=== PATIENT | female | born 1970 | race African-American/Black ===

== ENCOUNTER 2018-05-19 22:43 | Emergency (ER) | payer MEDICAID, OTHER ==
[~2018-05-19] VITALS: Ht 165.1 cm; Wt 86.0 kg
[2018-05-19] MEDS ORDERED: NITROGLYCERIN 0.4MG TABLET SL SL PRN (23:30)
[2018-05-19] MEDS ORDERED: ASPIRIN 81MG TABLET PO ONE (23:30)
[2018-05-19] MEDS ORDERED: MAGNESIUM/ALUMINUM HYDROXIDE/SIMETHICONE 30ML UDC PO ONE (23:30)
[2018-05-19] MEDS ORDERED: VISCOUS LIDOCAINE 2% 15 ML UDC PO ONE (23:30)
[2018-05-20 00:20] LABS: BASOPHILS % 0.2 % (0.0-2.0); EOSINOPHILS % 1.1 % (0.0-5.0); HEMATOCRIT. 36.6 % (36.0-48.0); HEMOGLOBIN. 12.4 g/dL (12.0-16.0); LYMPHOCYTES % 18.7 % (20.0-50.0); MEAN CORPUSCULAR VOLUME 91.6 fL (81.0-99.0); MEAN PLATELET VOLUME 8.4 fl (7.4-10.4); MONOCYTES % 5.3 % (2.0-8.0); NEUTROPHILS % 74.7 % (40.0-76.0); PLATELET 385 x1000/uL (130-400); RED CELL DISTRIBUTION WIDTH 18.1 % (11.6-14.6)
[2018-05-20 00:21] LABS: CHLORIDE 108 mEq/L (98-107)
[2018-05-20 04:30] VITALS: BP 141/95
== END 2018-05-20 04:56 | disposition home or self-care (01) ==
LOC: ER 22:54
DX: R07.89 Other chest pain (principal); R20.8 Other disturbances of skin sensation; F41.9 Anxiety disorder, unspecified; I50.9 Heart failure, unspecified; M32.9 Systemic lupus erythematosus, unspecified; Z85.830 Personal history of malignant neoplasm of bone; Z98.890 Other specified postprocedural states
CPT/HCPCS: 36415; 71045; 80053; 83880; 84484; 85025; 93005; 99284; Z7610

== ENCOUNTER 2019-08-07 06:04 | Emergency (ER) | payer MEDICAID, OTHER ==
[~2019-08-07] VITALS: Ht 170.2 cm; Wt 87.0 kg
[2019-08-07] MEDS ORDERED: OXYCODONE HCL/ACETAMINOPHEN 5/325MG TABLET PO ONE (06:45)
[2019-08-07 07:29] LABS: *AMPHETAMINES SCREEN URINE NEGATIVE (NEGATIVE); *BARBITURATES SCREEN URINE NEGATIVE (NEGATIVE)
[2019-08-07 07:41] LABS: *BENZODIAZEPINES SCREEN URINE NEGATIVE (NEGATIVE)
[2019-08-07 07:43] LABS: *COCAINE SCREEN URINE NEGATIVE (NEGATIVE); CANNABINOID URINE SCREEN NEGATIVE (NEGATIVE); METHADONE URINE SCREEN NEGATIVE (NEGATIVE); OPIATES URINE SCREEN NEGATIVE (NEGATIVE); PHENCYCLIDINE URINE SCREEN NEGATIVE (NEGATIVE)
[2019-08-07 07:50] LABS: BASOPHILS % 1.5 % (0.0-2.0); EOSINOPHILS % 1.2 % (0.0-5.0); HEMATOCRIT. 35.9 % (36.0-48.0); HEMOGLOBIN. 12.2 g/dL (12.0-16.0); LYMPHOCYTES % 24.5 % (20.0-50.0); MEAN CORPUSCULAR HEMOGLOBIN 30.9 pg (28.0-32.0); MEAN CORPUSCULAR VOLUME 91.2 fL (81.0-99.0); MEAN PLATELET VOLUME 8.7 fl (7.4-10.4); MONOCYTES % 5.2 % (2.0-8.0); NEUTROPHILS % 67.6 % (40.0-76.0); PLATELET 427 x1000/uL (130-400); RED BLOOD CELL COUNT 3.94 mill/uL (4.2-5.4); RED CELL DISTRIBUTION WIDTH 19.2 % (11.6-14.6)
[2019-08-07 07:59] LABS: CHLORIDE 106 mEq/L (98-107)
[2019-08-07 08:11] LABS: B-HCG QUANTITATIVE < 1 mIU/mL (<3)
[2019-08-07 10:14] VITALS: BP 129/85
== END 2019-08-07 10:29 | disposition home or self-care (01) ==
LOC: ER 06:04
DX: M79.18 Myalgia, other site (principal); D25.9 Leiomyoma of uterus, unspecified; N93.9 Abnormal uterine and vaginal bleeding, unspecified; M32.9 Systemic lupus erythematosus, unspecified; G40.909 Epilepsy, unspecified, not intractable, without status epilepticus; I10 Essential (primary) hypertension; F99 Mental disorder, not otherwise specified; Z85.89 Personal history of malignant neoplasm of other organs and systems; W01.0XXA Fall on same level from slipping, tripping and stumbling without subsequent striking against object, initial encounter; Y93.89 Activity, other specified; Y92.488 Other paved roadways as the place of occurrence of the external cause
CPT/HCPCS: 36415; 72170; 72220; 76830; 76856; 80053; 80305; 81025; 84702; 85025; 86850; 86900; 99285

== ENCOUNTER 2019-08-07 19:28 | Emergency (ER) | payer MEDICAID, OTHER ==
[~2019-08-07] VITALS: Ht 175.3 cm; Wt 90.7 kg
[2019-08-07 19:34] VITALS: BP 114/70
== END 2019-08-07 21:05 | disposition home or self-care (01) ==
LOC: ER 19:28
DX: Z04.89 Encounter for examination and observation for other specified reasons (principal); R11.2 Nausea with vomiting, unspecified; M32.9 Systemic lupus erythematosus, unspecified; G40.909 Epilepsy, unspecified, not intractable, without status epilepticus; Z85.9 Personal history of malignant neoplasm, unspecified; Z87.81 Personal history of (healed) traumatic fracture; Z98.890 Other specified postprocedural states
CPT/HCPCS: 99281